=== PATIENT | male | born 1935 | race Caucasian/White ===

== ENCOUNTER 2020-03-18 13:22 | Inpatient (IN) ==
[2020-03-18 17:03] LABS: ABS Basophils 0.1 10^3/ul (0-0.2); ABS Eosinophils 0.1 10^3/ul (0-0.6); ABS Lymphocytes 0.7 10^3/ul (1.0-4.8); ABS Monocytes 0.7 10^3/ul (0-0.8); ABS Neutrophils 4.7 10^3/ul (1.5-7.7); Eosinophil % 1.3 %; Hematocrit 26 % (42-52); Hemoglobin 8.9 g/dL (14.0-18.0); Lymphocyte % 10.7 %; Mean Corpuscular HGB Conc 34 g/dL (31-36); Mean Corpuscular Hemoglobin 31 pg (27-31); Mean Corpuscular Volume 91 fL (80-94); Mean Platelet Volume 7.4 fL (7.4-10.4); Platelet Count 345 10^3/uL (150-450); Red Blood Count 2.91 10^6 /uL (4.18-5.48); Red Cell Distribution Width 14 % (10-15); White Blood Count 6.2 10^3/uL (3.5-10.8)
[2020-03-18 17:23] LABS: ALT 20 U/L (7-52); AST 31 U/L (13-39); Albumin 3.7 g/dL (3.2-5.2); Albumin/Globulin Ratio 1.2 (1-3); Alkaline Phosphatase 78 U/L (34-104); Anion Gap 14 mmol/L (2-11); BUN/Creatinine Ratio 13.1 (8-20); Blood Urea Nitrogen 91 mg/dL (6-24); C Reactive Protein 19.31 mg/L (<8.01); CO2 Carbon Dioxide 23 mmol/L (22-32); Calcium 8.8 mg/dL (8.6-10.3); Chloride 101 mmol/L (101-111); EGFR African American 9.2 (>60); EGFR Non-African American 7.6 (>60); Globulin 3.1 g/dL (2-4); Glucose 74 mg/dL (70-100); Potassium 4.4 mmol/L (3.5-5.0); Sodium 138 mmol/L (135-145); Total Protein 6.8 g/dL (6.4-8.9)
[2020-03-18 17:25] LABS: Troponin I 2.07 ng/mL (<0.03)
[2020-03-18 20:38] LABS: Activated Partial Thrombo Time 35.7 seconds (26.0-38.0); INR 1.03 (0.82-1.09)
[2020-03-18 20:59] LABS: Troponin I 2.62 ng/mL (<0.03)
[2020-03-18] MEDS: Heparin 5000 UNITS/ML 1 mL VIAL SUBCUT SCH ×2 (21:43→21:49)
[2020-03-18 21:44] LABS: Hepatitis B Surface Antigen Nonreactive (Nonreactive)
[2020-03-19 00:35] LABS: Troponin I 2.38 ng/mL (<0.03)
[2020-03-19 06:40] LABS: ABS Eosinophils 0.1 10^3/ul (0-0.6); ABS Lymphocytes 0.4 10^3/ul (1.0-4.8); ABS Monocytes 0.8 10^3/ul (0-0.8); ABS Neutrophils 4.9 10^3/ul (1.5-7.7); Hematocrit 24 % (42-52); Hemoglobin 8.1 g/dL (14.0-18.0); Lymphocyte % 6.9 %; Mean Corpuscular HGB Conc 34 g/dL (31-36); Mean Corpuscular Hemoglobin 31 pg (27-31); Mean Corpuscular Volume 89 fL (80-94); Mean Platelet Volume 7.1 fL (7.4-10.4); Platelet Count 305 10^3/uL (150-450); Red Blood Count 2.65 10^6 /uL (4.18-5.48); Red Cell Distribution Width 14 % (10-15); White Blood Count 6.3 10^3/uL (3.5-10.8)
[2020-03-19 07:01] LABS: BUN/Creatinine Ratio 13.3 (8-20); Calcium 8.2 mg/dL (8.6-10.3); EGFR African American 8.7 (>60); EGFR Non-African American 7.2 (>60); Potassium 4.3 mmol/L (3.5-5.0)
[2020-03-19] MEDS ORDERED: Lidocaine 1% VIAL 10 MG/ML VIAL ONE (07:50)
[2020-03-19] MEDS ORDERED: Heparin 2 UNITS/ML 1000 mls 1,000 ML IV ONE (07:50)
[2020-03-19] MEDS: Clindamycin 600 MG/D5W BAG 600 MG/50 ML BAG IV ONE ×2 (07:56→09:09)
[2020-03-19] MEDS ORDERED: fentaNYL 100 mcg/2 ml 50 MCG/ML VIAL ONE (07:57)
[2020-03-19] MEDS ORDERED: Midazolam 5 mg/5 ml VIAL 1 mg/ml 5 ml VIAL (5 mg) ONE (07:58)
[2020-03-19] MEDS ORDERED: Heparin 5000 UNITS/ML 1 mL VIAL ONE (07:58)
[2020-03-19] MEDS ORDERED: Heparin 1,000 UNIT/ML 10 ml (10,000 UNITS) CATHLAB/DIALYSIS DIALYSIS ONE (09:00)
[2020-03-19] MEDS: Heparin 1,000 UNIT/ML 10 ml (10,000 UNITS) CATHLAB/DIALYSIS DIALYSIS ONE (13:06)
[2020-03-19] MEDS: Insulin GLARGINE 100 un/ml 10 ml VIAL SUBCUT SCH (14:34)
[2020-03-19] MEDS: Sodium Bicarb 650 mg (ANTACID) TAB PO SCH (14:36)
[2020-03-19] MEDS: Cholecalciferol (VIT D3) 1,000 unit TAB PO SCH (14:37)
[2020-03-19] MEDS: Heparin 5000 UNITS/ML 1 mL VIAL SUBCUT SCH ×2 (15:37→21:33)
[2020-03-20] MEDS: Heparin 5000 UNITS/ML 1 mL VIAL SUBCUT SCH ×3 (05:20→20:41)
[2020-03-20 07:13] LABS: Hematocrit 24 % (42-52); Mean Corpuscular HGB Conc 33 g/dL (31-36); Mean Corpuscular Hemoglobin 30 pg (27-31); Mean Corpuscular Volume 90 fL (80-94); Mean Platelet Volume 7.7 fL (7.4-10.4); Platelet Count 282 10^3/uL (150-450); Red Cell Distribution Width 14 % (10-15); White Blood Count 6.5 10^3/uL (3.5-10.8)
[2020-03-20] MEDS: Sodium Bicarb 650 mg (ANTACID) TAB PO SCH (08:25)
[2020-03-20] MEDS: Cholecalciferol (VIT D3) 1,000 unit TAB PO SCH (08:26)
[2020-03-20] MEDS: Insulin GLARGINE 100 un/ml 10 ml VIAL SUBCUT SCH (08:27)
[2020-03-20 10:20] LABS: BUN/Creatinine Ratio 12.3 (8-20); Calcium 8.3 mg/dL (8.6-10.3); EGFR African American 10.9 (>60); Potassium 3.8 mmol/L (3.5-5.0)
[2020-03-20 15:25] LABS: Hepatitis B Surface Ab Not Immune (Immune)
[2020-03-20] MEDS: Heparin 1,000 UNIT/ML 10 ml (10,000 UNITS) CATHLAB/DIALYSIS DIALYSIS ONE ×3 (16:28→19:30)
[2020-03-20 18:14] LABS: % Iron Saturation 9 % (15-55); Iron 23 ug/dL (50-212); Total Iron Binding Capacity 245 mcg/dL (250-450); Transferrin 175 mg/dL (203-362); Unsaturated Iron Binding < 230 ug/dL
[2020-03-20 18:15] LABS: Cholesterol 136 mg/dL; HDL Cholesterol 63.5 mg/dL; LDL Cholesterol 57 mg/dL; Triglycerides 77 mg/dL
[2020-03-20 20:40] LABS: Anion Gap 8 mmol/L (2-11); BUN/Creatinine Ratio 10.9 (8-20); Blood Urea Nitrogen 41 mg/dL (6-24); CO2 Carbon Dioxide 28 mmol/L (22-32); Chloride 101 mmol/L (101-111); Cholesterol 131 mg/dL; EGFR African American 18.8 (>60); EGFR Non-African American 15.5 (>60); Glucose 210 mg/dL (70-100); HDL Cholesterol 63.8 mg/dL; LDL Cholesterol 43 mg/dL; Potassium 4.5 mmol/L (3.5-5.0); Sodium 137 mmol/L (135-145); Triglycerides 121 mg/dL
[2020-03-20 20:49] LABS: Troponin I 2.21 ng/mL (<0.03)
[2020-03-20 21:27] LABS: % Iron Saturation 10 % (15-55); Iron 22 ug/dL (50-212); Total Iron Binding Capacity 231 mcg/dL (250-450); Transferrin 165 mg/dL (203-362); Unsaturated Iron Binding < 216 ug/dL
[2020-03-21] MEDS: Heparin 5000 UNITS/ML 1 mL VIAL SUBCUT SCH ×3 (05:43→20:24)
[2020-03-21] MEDS ORDERED: [UNRECOGNIZED DRUG - OTHER] IV PRN (06:30)
[2020-03-21] MEDS ORDERED: ALBUMIN HUMAN IV PRN (06:30)
[2020-03-21] MEDS: Heparin 1,000 UNIT/ML 10 ml (10,000 UNITS) CATHLAB/DIALYSIS DIALYSIS ONE ×4 (07:31→11:10)
[2020-03-21 08:16] LABS: Hematocrit 25 % (42-52); Hemoglobin 8.2 g/dL (14.0-18.0); Mean Corpuscular HGB Conc 33 g/dL (31-36); Mean Corpuscular Hemoglobin 30 pg (27-31); Mean Corpuscular Volume 91 fL (80-94); Mean Platelet Volume 7.9 fL (7.4-10.4); Platelet Count 276 10^3/uL (150-450); Red Blood Count 2.74 10^6 /uL (4.18-5.48); Red Cell Distribution Width 14 % (10-15); White Blood Count 6.6 10^3/uL (3.5-10.8)
[2020-03-21 08:31] LABS: Anion Gap 9 mmol/L (2-11); BUN/Creatinine Ratio 10.7 (8-20); Blood Urea Nitrogen 48 mg/dL (6-24); CO2 Carbon Dioxide 27 mmol/L (22-32); Calcium 8.2 mg/dL (8.6-10.3); Chloride 101 mmol/L (101-111); EGFR African American 15.3 (>60); EGFR Non-African American 12.7 (>60); Glucose 115 mg/dL (70-100); Magnesium 2.2 mg/dL (1.9-2.7); Sodium 137 mmol/L (135-145)
[2020-03-21] MEDS: Cholecalciferol (VIT D3) 1,000 unit TAB PO SCH (12:44)
[2020-03-21] MEDS: Insulin GLARGINE 100 un/ml 10 ml VIAL SUBCUT SCH (12:47)
[2020-03-21] MEDS ORDERED: Iron Sucrose 200 MG in NS 0.9% 100 ml BAG 100 ML IVPB ONE (13:34)
[2020-03-22 04:58] LABS: ABS Eosinophils 0.2 10^3/ul (0-0.6); ABS Lymphocytes 0.8 10^3/ul (1.0-4.8); ABS Monocytes 1.2 10^3/ul (0-0.8); ABS Neutrophils 4.8 10^3/ul (1.5-7.7); Eosinophil % 3.5 %; Hematocrit 26 % (42-52); Hemoglobin 8.5 g/dL (14.0-18.0); Lymphocyte % 11.5 %; Mean Corpuscular HGB Conc 33 g/dL (31-36); Mean Corpuscular Hemoglobin 30 pg (27-31); Mean Corpuscular Volume 90 fL (80-94); Mean Platelet Volume 7.9 fL (7.4-10.4); Platelet Count 282 10^3/uL (150-450); Red Blood Count 2.85 10^6 /uL (4.18-5.48); Red Cell Distribution Width 14 % (10-15); White Blood Count 7.1 10^3/uL (3.5-10.8)
[2020-03-22 05:22] LABS: Anion Gap 8 mmol/L (2-11); Blood Urea Nitrogen 36 mg/dL (6-24); CO2 Carbon Dioxide 26 mmol/L (22-32); Calcium 8.3 mg/dL (8.6-10.3); Chloride 100 mmol/L (101-111); EGFR African American 17.6 (>60); EGFR Non-African American 14.5 (>60); Glucose 107 mg/dL (70-100); Potassium 3.8 mmol/L (3.5-5.0); Sodium 134 mmol/L (135-145)
[2020-03-22] MEDS: Heparin 5000 UNITS/ML 1 mL VIAL SUBCUT SCH ×3 (06:01→21:53)
[2020-03-22] MEDS: Cholecalciferol (VIT D3) 1,000 unit TAB PO SCH (08:27)
[2020-03-22] MEDS: Insulin GLARGINE 100 un/ml 10 ml VIAL SUBCUT SCH (08:27)
[2020-03-22] MEDS: Nitroglycerin 0.2 mg/hr PATCH (5 mg) TRANSDERM SCH (12:41)
[2020-03-22 13:51] LABS: Albumin, BF 1.3 g/dL; Fluid Type, Albumin PLEURAL; Lactate Dehydrogenase, BF 122 U/L
[2020-03-22 13:51] LABS: Troponin I 1.41 ng/mL (<0.03)
[2020-03-22 15:30] LABS: Total Protein 5.7 g/dL (6.4-8.9)
[2020-03-22 15:34] LABS: Fluid Type, Glucose PLEURAL; Glucose, BF 148 mg/dL
[2020-03-22 15:36] LABS: Fluid Type, Protein, Total PLEURAL
[2020-03-22] MEDS: Iron Sucrose 200 MG in NS 0.9% 100 ml BAG 100 ML IVPB SCH (16:27)
[2020-03-22] MEDS: Nitro Patch/OINT Remove PATCH PATCH OFF SCH (21:53)
[2020-03-23] MEDS: Heparin 5000 UNITS/ML 1 mL VIAL SUBCUT SCH (07:14)
[2020-03-23 09:32] LABS: ABS Eosinophils 0.4 10^3/ul (0-0.6); ABS Lymphocytes 0.9 10^3/ul (1.0-4.8); ABS Monocytes 1.3 10^3/ul (0-0.8); ABS Neutrophils 5.1 10^3/ul (1.5-7.7); Eosinophil % 4.9 %; Hematocrit 25 % (42-52); Hemoglobin 8.4 g/dL (14.0-18.0); Lymphocyte % 12.2 %; Mean Corpuscular HGB Conc 33 g/dL (31-36); Mean Corpuscular Hemoglobin 30 pg (27-31); Mean Corpuscular Volume 90 fL (80-94); Mean Platelet Volume 8.4 fL (7.4-10.4); Platelet Count 308 10^3/uL (150-450); Red Blood Count 2.82 10^6 /uL (4.18-5.48); Red Cell Distribution Width 14 % (10-15); White Blood Count 7.7 10^3/uL (3.5-10.8)
[2020-03-23 09:41] LABS: BUN/Creatinine Ratio 9.8 (8-20); EGFR African American 12.6 (>60); EGFR Non-African American 10.4 (>60); Potassium 4.1 mmol/L (3.5-5.0)
[2020-03-23] MEDS: Insulin GLARGINE 100 un/ml 10 ml VIAL SUBCUT SCH (10:39)
[2020-03-23] MEDS: Cholecalciferol (VIT D3) 1,000 unit TAB PO SCH (10:40)
[2020-03-23] MEDS: Nitroglycerin 0.2 mg/hr PATCH (5 mg) TRANSDERM SCH (10:41)
[2020-03-23] MEDS: Iron Sucrose 200 MG in NS 0.9% 100 ml BAG 100 ML IVPB SCH (10:49)
[2020-03-23] MEDS ORDERED: Heparin DRIP 25,000 UNITS BAG 25,000 UNITS/500 ML BAG IV SCH ×3 (11:45→18:00)
[2020-03-23] MEDS ORDERED: Heparin 5000 UNITS/ML 1 mL VIAL IV SCH (12:00)
[2020-03-23] MEDS ORDERED: Heparin DRIP 25,000 UNITS BAG 25,000 UNITS/500 ML BAG IV ONE (16:59)
[2020-03-23] MEDS ORDERED: Heparin 5000 UNITS/ML 1 mL VIAL IV PRN ×2 (17:00→18:00)
[2020-03-23] MEDS ORDERED: Heparin 5000 UNITS/ML 1 mL VIAL IV ONE ×2 (17:15)
[2020-03-23 19:48] LABS: ABS Basophils 0.1 10^3/ul (0-0.2); ABS Eosinophils 0.5 10^3/ul (0-0.6); ABS Monocytes 1.5 10^3/ul (0-0.8); ABS Neutrophils 4.8 10^3/ul (1.5-7.7); Hematocrit 26 % (42-52); Hemoglobin 8.6 g/dL (14.0-18.0); Lymphocyte % 12.7 %; Mean Corpuscular HGB Conc 33 g/dL (31-36); Mean Corpuscular Hemoglobin 30 pg (27-31); Mean Corpuscular Volume 90 fL (80-94); Mean Platelet Volume 7.8 fL (7.4-10.4); Platelet Count 302 10^3/uL (150-450); Red Blood Count 2.85 10^6 /uL (4.18-5.48); Red Cell Distribution Width 14 % (10-15); White Blood Count 7.9 10^3/uL (3.5-10.8)
[2020-03-23] MEDS: Nitro Patch/OINT Remove PATCH PATCH OFF SCH (21:02)
[2020-03-24] MEDS ORDERED: Heparin 1,000 UNIT/ML 10 ml (10,000 UNITS) CATHLAB/DIALYSIS DIALYSIS ONE ×2 (07:00)
[2020-03-24 07:45] LABS: ABS Eosinophils 0.5 10^3/ul (0-0.6); ABS Lymphocytes 0.8 10^3/ul (1.0-4.8); ABS Monocytes 1.2 10^3/ul (0-0.8); ABS Neutrophils 4.4 10^3/ul (1.5-7.7); Hematocrit 25 % (42-52); Hemoglobin 8.5 g/dL (14.0-18.0); Lymphocyte % 11.2 %; Mean Corpuscular HGB Conc 34 g/dL (31-36); Mean Corpuscular Hemoglobin 30 pg (27-31); Mean Corpuscular Volume 90 fL (80-94); Mean Platelet Volume 8.1 fL (7.4-10.4); Platelet Count 316 10^3/uL (150-450); Red Blood Count 2.78 10^6 /uL (4.18-5.48); Red Cell Distribution Width 14 % (10-15); White Blood Count 6.8 10^3/uL (3.5-10.8)
[2020-03-24 08:03] LABS: BUN/Creatinine Ratio 10.8 (8-20); Calcium 8.1 mg/dL (8.6-10.3); EGFR African American 10.6 (>60); EGFR Non-African American 8.7 (>60); Potassium 4.4 mmol/L (3.5-5.0)
[2020-03-24] MEDS: Cholecalciferol (VIT D3) 1,000 unit TAB PO SCH (08:03)
[2020-03-24] MEDS: Iron Sucrose 200 MG in NS 0.9% 100 ml BAG 100 ML IVPB SCH (08:03)
[2020-03-24] MEDS: Insulin GLARGINE 100 un/ml 10 ml VIAL SUBCUT SCH (08:05)
[2020-03-24] MEDS: Nitroglycerin 0.2 mg/hr PATCH (5 mg) TRANSDERM SCH (12:03)
[2020-03-24] MEDS ORDERED: fentaNYL 100 mcg/2 ml 50 MCG/ML VIAL ONE (13:15)
[2020-03-24] MEDS ORDERED: VERAPAMIL 2.5 MG/ML 2 ML VIAL ** 5 mg/2 ml ONE (13:15)
[2020-03-24] MEDS ORDERED: Midazolam 5 mg/5 ml VIAL 1 mg/ml 5 ml VIAL (5 mg) ONE (13:15)
[2020-03-24] MEDS ORDERED: Heparin 1,000 UNIT/ML 10 ml (10,000 UNITS) CATHLAB/DIALYSIS ONE (13:15)
[2020-03-24] MEDS ORDERED: Iohexol 350 (CONTRAST) 200 ML MDV IV ONE (13:16)
[2020-03-24] MEDS ORDERED: Heparin 2 UNITS/ML 1000 mls 2,000 ML IV ONE (13:16)
[2020-03-24] MEDS ORDERED: nitroGLYCERIN DRIP 25,000 MCG/250 ML BTL ONE (13:16)
[2020-03-24] MEDS ORDERED: Lidocaine 1% VIAL 10 MG/ML VIAL ONE (13:16)
[2020-03-24] MEDS ORDERED: Phenylephrine IV 10 MG/ML 1 ml VIAL ONE (14:23)
[2020-03-24] MEDS: Nitro Patch/OINT Remove PATCH PATCH OFF SCH (20:30)
[2020-03-25 05:45] LABS: ABS Basophils 0.1 10^3/ul (0-0.2); ABS Eosinophils 0.3 10^3/ul (0-0.6); ABS Monocytes 1.4 10^3/ul (0-0.8); Hematocrit 29 % (42-52); Hemoglobin 9.5 g/dL (14.0-18.0); Lymphocyte % 14.6 %; Mean Corpuscular HGB Conc 33 g/dL (31-36); Mean Corpuscular Hemoglobin 30 pg (27-31); Mean Corpuscular Volume 91 fL (80-94); Mean Platelet Volume 8.2 fL (7.4-10.4); Platelet Count 315 10^3/uL (150-450); Red Blood Count 3.14 10^6 /uL (4.18-5.48); Red Cell Distribution Width 14 % (10-15); White Blood Count 6.7 10^3/uL (3.5-10.8)
[2020-03-25 05:56] LABS: BUN/Creatinine Ratio 10.1 (8-20); Calcium 8.5 mg/dL (8.6-10.3); EGFR African American 14.7 (>60); EGFR Non-African American 12.2 (>60); Potassium 4.5 mmol/L (3.5-5.0)
[2020-03-25] MEDS ORDERED: [UNRECOGNIZED DRUG - OTHER] IV PRN (09:00)
[2020-03-25] MEDS ORDERED: ALBUMIN HUMAN IV PRN (09:00)
[2020-03-25] MEDS: Cholecalciferol (VIT D3) 1,000 unit TAB PO SCH (09:21)
[2020-03-25] MEDS: Nitroglycerin 0.2 mg/hr PATCH (5 mg) TRANSDERM SCH (09:21)
[2020-03-25] MEDS: Insulin GLARGINE 100 un/ml 10 ml VIAL SUBCUT SCH (09:22)
[2020-03-25] MEDS: Iron Sucrose 200 MG in NS 0.9% 100 ml BAG 100 ML IVPB SCH (09:30)
[2020-03-25 21:28] LABS: ABS Eosinophils 0.3 10^3/ul (0-0.6); ABS Lymphocytes 0.8 10^3/ul (1.0-4.8); ABS Monocytes 1.2 10^3/ul (0-0.8); ABS Neutrophils 3.9 10^3/ul (1.5-7.7); Eosinophil % 5.2 %; Hematocrit 27 % (42-52); Hemoglobin 8.7 g/dL (14.0-18.0); Lymphocyte % 13.4 %; Mean Corpuscular HGB Conc 33 g/dL (31-36); Mean Corpuscular Hemoglobin 31 pg (27-31); Mean Corpuscular Volume 94 fL (80-94); Mean Platelet Volume 8.4 fL (7.4-10.4); Nucleated Red Blood Cells % 0.1; Platelet Count 271 10^3/uL (150-450); Red Blood Count 2.86 10^6 /uL (4.18-5.48); Red Cell Distribution Width 14 % (10-15); White Blood Count 6.3 10^3/uL (3.5-10.8)
[2020-03-25 21:29] LABS: Activated Partial Thrombo Time 30.9 seconds (26.0-38.0); EGFR African American 11.8 (>60); EGFR Non-African American 9.7 (>60); INR 1.05 (0.82-1.09)
[2020-03-25] MEDS: Heparin 5000 UNITS/ML 1 mL VIAL SUBCUT SCH (22:27)
[2020-03-25] MEDS: Nitro Patch/OINT Remove PATCH PATCH OFF SCH (22:30)
[2020-03-26] MEDS: Heparin 5000 UNITS/ML 1 mL VIAL SUBCUT SCH ×3 (05:45→20:30)
[2020-03-26 05:59] LABS: ABS Basophils 0.1 10^3/ul (0-0.2); ABS Eosinophils 0.4 10^3/ul (0-0.6); ABS Lymphocytes 0.8 10^3/ul (1.0-4.8); ABS Monocytes 1.1 10^3/ul (0-0.8); ABS Neutrophils 4.2 10^3/ul (1.5-7.7); Eosinophil % 6.2 %; Hematocrit 27 % (42-52); Lymphocyte % 12.8 %; Mean Corpuscular HGB Conc 34 g/dL (31-36); Mean Corpuscular Hemoglobin 31 pg (27-31); Mean Corpuscular Volume 91 fL (80-94); Platelet Count 291 10^3/uL (150-450); Red Blood Count 2.95 10^6 /uL (4.18-5.48); Red Cell Distribution Width 14 % (10-15); White Blood Count 6.6 10^3/uL (3.5-10.8)
[2020-03-26 06:20] LABS: BUN/Creatinine Ratio 10.5 (8-20); Calcium 8.2 mg/dL (8.6-10.3); EGFR African American 10.6 (>60); EGFR Non-African American 8.7 (>60); Potassium 4.8 mmol/L (3.5-5.0)
[2020-03-26] MEDS: Heparin 1,000 UNIT/ML 10 ml (10,000 UNITS) CATHLAB/DIALYSIS DIALYSIS ONE ×3 (08:32→11:23)
[2020-03-26] MEDS: Nitroglycerin 0.2 mg/hr PATCH (5 mg) TRANSDERM SCH (12:09)
[2020-03-26] MEDS: Insulin GLARGINE 100 un/ml 10 ml VIAL SUBCUT SCH (12:52)
[2020-03-26] MEDS: Cholecalciferol (VIT D3) 1,000 unit TAB PO SCH (12:55)
[2020-03-26] MEDS: Iron Sucrose 200 MG in NS 0.9% 100 ml BAG 100 ML IVPB SCH (12:58)
[2020-03-26] MEDS: Nitro Patch/OINT Remove PATCH PATCH OFF SCH (20:38)
[2020-03-27 05:33] LABS: ABS Basophils 0.1 10^3/ul (0-0.2); ABS Eosinophils 0.4 10^3/ul (0-0.6); ABS Lymphocytes 0.8 10^3/ul (1.0-4.8); ABS Neutrophils 4.5 10^3/ul (1.5-7.7); Eosinophil % 5.8 %; Hematocrit 29 % (42-52); Hemoglobin 9.5 g/dL (14.0-18.0); Lymphocyte % 12.1 %; Mean Corpuscular HGB Conc 33 g/dL (31-36); Mean Corpuscular Hemoglobin 31 pg (27-31); Mean Corpuscular Volume 92 fL (80-94); Mean Platelet Volume 8.3 fL (7.4-10.4); Platelet Count 292 10^3/uL (150-450); Red Blood Count 3.12 10^6 /uL (4.18-5.48); Red Cell Distribution Width 15 % (10-15); White Blood Count 6.8 10^3/uL (3.5-10.8)
[2020-03-27 05:58] LABS: BUN/Creatinine Ratio 8.6 (8-20); Calcium 8.3 mg/dL (8.6-10.3); EGFR African American 12.6 (>60); EGFR Non-African American 10.4 (>60); Magnesium 2.1 mg/dL (1.9-2.7); Potassium 4.8 mmol/L (3.5-5.0)
[2020-03-27] MEDS: Heparin 5000 UNITS/ML 1 mL VIAL SUBCUT SCH (06:21)
[2020-03-27] MEDS: Insulin GLARGINE 100 un/ml 10 ml VIAL SUBCUT SCH (08:11)
[2020-03-27] MEDS ORDERED: NS 0.9% 1000 ml BAG 1,000 ML IV SCH ×2 (09:00→13:30)
[2020-03-27 10:02] LABS: INR 1.08 (0.82-1.09)
[2020-03-27] MEDS ORDERED: Iodixanol 320 (CONTRAST) 100 ML SDV ONE (11:17)
[2020-03-27] MEDS ORDERED: Heparin 2 UNITS/ML 1000 mls 2,000 ML IV ONE (11:17)
[2020-03-27] MEDS ORDERED: Lidocaine 1% VIAL 10 MG/ML VIAL ONE (11:17)
[2020-03-27] MEDS ORDERED: Heparin 2 UNITS/ML 1000 mls 1,000 ML IV ONE (11:18)
[2020-03-27] MEDS ORDERED: diPHENhydraMINE IV 50 MG/ML 1 ml VIAL (BENADRYL) ONE (11:38)
[2020-03-27] MEDS ORDERED: VERAPAMIL 2.5 MG/ML 2 ML VIAL ** 5 mg/2 ml ONE (11:38)
[2020-03-27] MEDS ORDERED: Midazolam 5 mg/5 ml VIAL 1 mg/ml 5 ml VIAL (5 mg) ONE (11:38)
[2020-03-27] MEDS ORDERED: Heparin 1,000 UNIT/ML 10 ml (10,000 UNITS) CATHLAB/DIALYSIS ONE (11:38)
[2020-03-27] MEDS ORDERED: nitroGLYCERIN DRIP 25,000 MCG/250 ML BTL ONE (12:19)
[2020-03-27] MEDS ORDERED: Phenylephrine IV 10 MG/ML 1 ml VIAL ONE (12:35)
[2020-03-27] MEDS: Cholecalciferol (VIT D3) 1,000 unit TAB PO SCH (16:41)
[2020-03-27] MEDS: Nitroglycerin 0.2 mg/hr PATCH (5 mg) TRANSDERM SCH (16:50)
[2020-03-27] MEDS: Nitro Patch/OINT Remove PATCH PATCH OFF SCH (21:57)
[2020-03-28 08:40] LABS: ABS Basophils 0.1 10^3/ul (0-0.2); ABS Eosinophils 0.4 10^3/ul (0-0.6); ABS Lymphocytes 0.8 10^3/ul (1.0-4.8); ABS Neutrophils 5.3 10^3/ul (1.5-7.7); Eosinophil % 4.9 %; Hematocrit 28 % (42-52); Hemoglobin 9.4 g/dL (14.0-18.0); Lymphocyte % 10.3 %; Mean Corpuscular HGB Conc 34 g/dL (31-36); Mean Corpuscular Hemoglobin 31 pg (27-31); Mean Corpuscular Volume 91 fL (80-94); Mean Platelet Volume 8.1 fL (7.4-10.4); Platelet Count 303 10^3/uL (150-450); Red Blood Count 3.07 10^6 /uL (4.18-5.48); Red Cell Distribution Width 15 % (10-15); White Blood Count 7.5 10^3/uL (3.5-10.8)
[2020-03-28] MEDS: Heparin 1,000 UNIT/ML 10 ml (10,000 UNITS) CATHLAB/DIALYSIS DIALYSIS ONE ×3 (08:45→11:52)
[2020-03-28 08:48] LABS: BUN/Creatinine Ratio 10.3 (8-20); Calcium 7.3 mg/dL (8.6-10.3); EGFR African American 11.3 (>60); EGFR Non-African American 9.4 (>60); Potassium 4.3 mmol/L (3.5-5.0)
[2020-03-28] MEDS: Nitroglycerin 0.2 mg/hr PATCH (5 mg) TRANSDERM SCH (09:25)
[2020-03-28] MEDS: Cholecalciferol (VIT D3) 1,000 unit TAB PO SCH (12:11)
[2020-03-28] MEDS: Insulin GLARGINE 100 un/ml 10 ml VIAL SUBCUT SCH (12:13)
[2020-03-28 17:07] VITALS: BP 99/53
== END 2020-03-28 18:00 | disposition short-term general hospital (02) | DRG 280 ==
LOC: MEDTELE 13:22 → ED 13:22 → MEDTELE 19:45
PROVIDERS: ADMIT Pediatrics; ATTEND Internal Medicine